=== PATIENT | female | born 1985 | race Caucasian/White ===

== ENCOUNTER → 2020-03-18 16:46 | Outpatient (CLI) | payer BC, SELFPAY ==
--- NOTE | ~2020-03-18 | XR_ITS ---
XR ankle LT min 3V, XR foot LT min 3V 03/18/2020 17:22 Indication: Left foot and ankle pain Procedure: 4 views of the left foot and ankle Comparison: No prior studies for comparison. Findings: No fracture or traumatic malalignment. There is anatomic alignment. Lisfranc joint intact. Ankle mortise within normal limits. No focal soft tissue abnormality. No foreign bodies. Impression: 1: No acute bone or joint abnormality. Reviewed, dictated and finalized at location A. [employer] Impression: 1: No acute bone or joint abnormality. Impression: 1: No acute bone or joint abnormality.
== END ==
PROVIDERS: PCP Emergency Medicine; Visit Provider Emergency Medicine
DX: M25.572 Pain in left ankle and joints of left foot (principal)
CPT/HCPCS: 73610; 73630

== ENCOUNTER → 2020-09-27 10:06 | Outpatient (CLI) | payer BC, SELFPAY ==
--- NOTE | ~2020-09-27 | MR_ITS ---
EXAMINATION: MR ankle LT wo con DATE: 09/27/2020 10:53 INDICATION: Left foot and ankle arthritis with anterolateral hindfoot pain. TECHNIQUE: Magnetic resonance imaging (MRI) of the left ankle was performed without intravenous contr ast. Sequences included sagittal, coronal, and axial proton-density weighted fast spin echo without a nd with fat saturation. COMPARISON: None. FINDINGS: Medial ankle ligaments: Deep and superficial deltoid ligaments as well as the spring ligament are normal. Lateral ankle ligaments: The anterior and posterior inferior tibiofibular ligaments are normal. The anterior talofibular, calc aneofibular and posterior talofibular ligaments are normal. Tendons: Small enthesophyte and tiny enthesopathic ossicle at the calcaneal insertion of the otherwise normal Achilles tendon. Small amount of fluid consistent with mild tenosynovitis extending along the normal peroneus longus and brevis tendons. The tibialis anterior and extensor hallucis longus and extensor d igitorum longus tendons are normal. The tibialis posterior, flexor digitorum longus and flexor halluc is longus tendons are normal. Plantar fascia: Plantar aponeurosis is normal. Bones/other: Bone alignment is normal. No fracture or pathologic marrow replacing process. Joint spaces are normal . Fluid: Physiologic amount fluid in the joint spaces. Small ganglion cyst extending superiorly from the media l side of the talonavicular joint along the undersurface of the superficial deltoid ligament. IMPRESSION: 1. Mild peroneal tenosynovitis. Reviewed, dictated and finalized at location A.
== END ==
PROVIDERS: Visit Provider Podiatrist Foot & Ankle Surgery
DX: M13.872 Other specified arthritis, left ankle and foot (principal); M65.872 Other synovitis and tenosynovitis, left ankle and foot
CPT/HCPCS: 73721

== ENCOUNTER 2023-02-08 12:51 | Outpatient (CLI) | payer BC, SELFPAY ==
--- NOTE | ~2023-02-08 | XR_ITS ---
EXAMINATION: XR chest 2V 02/08/2023 13:04 INDICATION: Acute bronchitis. Cough. Congestion. PROCEDURE: 2 view chest COMPARISON: No prior studies for comparison. FINDINGS: The lungs are clear. The cardiomediastinal silhouette is within normal limits. There are no pleural effusions. There is no pneumothorax suspected. IMPRESSION: 1: NO ACUTE CARDIOPULMONARY DISEASE. Reviewed, dictated and finalized at location L. ARCHITECT
== END 2023-02-08 12:52 ==
PROVIDERS: PCP Emergency Medicine; Visit Provider Emergency Medicine
DX: R05.9 Cough, unspecified (principal); J20.9 Acute bronchitis, unspecified
CPT/HCPCS: 71046

== ENCOUNTER 2023-12-06 16:54 | Outpatient (CLI) | payer BC, SELFPAY ==
--- NOTE | ~2023-12-06 | XR_ITS ---
EXAMINATION: XR hand LT min 3V, XR hand RT min 3V DATE: 12/06/2023 17:06 INDICATION: Unspecified synovitis and tenosynovitis at the bilateral hands. TECHNIQUE: 1. Posteroanterior, oblique and lateral views of the left hand were obtained. 2. Posteroanterior, oblique and lateral views of the right hand were obtained. COMPARISON: None. FINDINGS: Normal alignment and joint spaces at the bilateral hands and wrists. No fractures. No erosions to sug gest inflammatory arthritis. Soft tissues are unremarkable. IMPRESSION: 1. Negative bilateral hand radiographs. Reviewed, dictated and finalized at location A. IMPRESSION: 1. Negative bilateral hand radiographs.
== END 2023-12-06 16:55 | disposition home or self-care (01) ==
LOC: ANHIMG 16:55
PROVIDERS: PCP Emergency Medicine; Visit Provider Plastic Surgery
DX: M65.941 Unspecified synovitis and tenosynovitis, right hand (principal); M65.942 Unspecified synovitis and tenosynovitis, left hand
CPT/HCPCS: 73130

== ENCOUNTER 2024-02-27 08:00 | Outpatient (RCR) | payer BC, SELFPAY ==
--- NOTE | 2023-12-30 16:02 | OTOPEVAL1 ---
Assessment and note entered by Reginald Garibay, SOCRATES/Suzette, CHT Evaluation Information Assessment Status Evaluation Diagnosis Unspecified synovitis and tenosynovitis ICD-10 Condition Codes (OT) M79.641,M79.642 Subjective Information Patient reporting bilateral hand pain that's been going on for 20 years. 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 She reports the pain is localized to her palms. Prior to receiving injections a few weeks ago she was unable to fully straighten her fingers and she is able to now with some effort and pain. She reports no paresthesia and no radiating pains. Assessment OT Clinical Summary Patient referred to OT with bilateral hand pain with dx of flexor tenosynovitis. She presents with persistent pain that is exacerbated by activities that require finger flexion, such as typing, which she unfortunately does a lot of with working as an treasury accountant. Skilled OT indicated for use of modalities, manual therapy, HEP instruction/ progression, splinting, and therapeutic exercise to facilitate optimal functional hand function and reduced pain. Plan of Care Interventions Therapeutic Exercise,Manual Therapy,Therapeutic Activities,Hot Pack/Cold Pack,Ultrasound,Paraffin OT Services Indicated Yes Treatment Frequency and 2x/week for 8 visits Duration These treatments will address the objective and functional deficits as defined above. The patient will be advanced safely and appropriately in order for the patient to progress towards his/her prior level of function. Additional exercises will be introduced and as well as a comprehensive home exercise program upon discharge, if needed, ?to ensure carryover of functional gains achieved in the clinic. This treatment plan has been reviewed and agreement upon by the patient.
--- NOTE | 2023-12-30 16:03 | OPREHPOC ---
Outpatient Therapy Plan of Care This is a Multidisciplinary Plan of Care that may contain components documented by all disciplines (PT, OT, and ST.) OT Problem 1 OT Problem #1 Knowledge Deficit OT Goal 1 Goal / Goal Update 1. Patient to be independent with instructed materials.8 OT Problem 2 OT Problem #2 Pain OT Goal 1 Goal / Goal Update 1. Patient to report progressing to 0/10 pain at rest. 2. Patient to report reduced pain after a work day to 3/10 at worst . Target Visit 8 OT Problem 3 OT Problem #3 Impaired Flexibility OT Goal 1 Goal / Goal Update 1. Patient to be able to make a hook fist with bilateral hands with <1 cm gap between finger tips and DPC. Target Visit 8 OT Problem 4 OT Problem #4 Impaired Strength OT Goal 1 Goal / Goal Update 1. Patient to be able to progress to bilateral hand bag bailer/pinch strengthening with at least yellow putty x5 minutes without pain. Target Visit 8
--- NOTE | 2024-01-30 08:22 | PCOTNOTE ---
Patient did not show up for scheduled appointment this date. Called and left a message for re-schedule if able to attend. No Show.
--- NOTE | 2024-03-12 08:58 | PCOTNOTE ---
Late note for 03/09/24: Patient called and cancelled appointment this date due to falling and having lacerations on her hands. Not wanting to come in for therapy due to this.
--- NOTE | 2024-03-12 08:58 | PCOTNOTE ---
Patient did not show up for scheduled appointment this date. Called patient who reports she thought she canceled today's appointment too when she canceled last week's appt. Patient reports she has injured her hand, reporting lacerations on her hands, and she didn't want to come in for therapy with this. She also did not want to reschedule the re-eval at this time due to not knowing how long it will take for her hands to heal. Asked patient to call the secretaries to reschedule the re-eval when she's ready.
== END 2024-03-29 23:59 | disposition home or self-care (01) ==
LOC: ANHOT 08:00
PROVIDERS: PCP Emergency Medicine; Visit Provider Plastic Surgery
DX: M65.949 Unspecified synovitis and tenosynovitis, unspecified hand (principal)
CPT/HCPCS: 97018; 97035; 97110; 97140; 97165; 97530

== ENCOUNTER 2024-11-01 21:14 | Emergency (ER) | payer BC, SELFPAY ==
[2024-11-01 21:17] VITALS: BP 153/101; PULSE 85; RESP 18; TEMP 36.6; O2SAT 98
--- OUTSIDE RECORDS SUMMARY | 2024-11-02 00:40 | XMS_ITS | Clinical Summary ---
Author Organization [facility] Address [address] [place] [address] Care Team Providers Care Beaming Machine Operator Name Role Phone Mehrdad Harley MD Primary Care Provider [phone] Source Comments [facility],non-owned Affiliates and Associated Physician Practices is amultiple site organization consisting of ambulatory clinics and hospital sitesin [place], [place], [place] and [place]. This disclosure is being madepursuant to the Care Everywhere program and may not contain all information available regarding this patient. Last updated 17.[employer] Allergies No known active allergies Medications * Be aware that medications may not be up to date on this document. Alwaysverify current medications with the patient. baclofen (LIORESAL) 10 MG tabletIndicatio ns:back pain Take 1 Tab by mouth 2 times daily May cause drowsiness. Reasons: back pain 60 Tab 10/10/2016 Active ALPRAZolam (Xanax) 0.5 MG tablet Take 1 (one) tablet by mouth once daily as needed Active cloNIDine (Catapres) 0.1 MG tablet Take 1 (one) tablet by mouth every 12 hours 05/09/2024 Active fluticasone propionate (Flonase) 50 MCG/ACT nasal spray Roscoe 2 (two) sprays into each nostril once daily Make sure to shake bottle first Active gabapentin (Neurontin) 400 MG capsule Take 1 (one) capsule by mouth 3 times daily Active HYDROcodone-olivia taminophen (Raymond) 5-325 MG tablet Take 1 (one) tablet by mouth as needed 05/09/2024 Active lamoTRIgine (LaMICtal) 100 MG tablet Take 1 (one) tablet by mouth once daily Active levocetirizine (Xyzal) 5 MG tablet Take 1 (one) tablet by mouth every 24 hours 10/13/2023 Active methylphenidate ER (Concerta) 36 MG tablet Take 1 (one) tablet by mouth once daily Active Lyrica 200 MG capsule Take 1 (one) capsule by mouth every 12 hours 05/09/2024 Active SUMAtriptan (Imitrex) 50 MG tablet Take 1 (one) tablet by mouth once Active triamcinolone acetonide (Kenalog) 0.1 % cream Apply to affected area 2 times daily Active Venlafaxine HCl (venlafaxine ER 24hr) 150 MG tablet Take 1 (one) tablet by mouth once daily 02/01/2024 Active naproxen (Naprosyn) 250 MG tablet Take 1 (one) tablet by mouth 2 times daily as needed 07/31/2024 Active Active Problems Problem Noted Date Diagnosed Date Abdominal pain 07/23/2024 Allergic rhinitis 07/23/2024 Depressive disorder 07/23/2024 Eczema 07/23/2024 Elevated blood-pressure read ing without diagnosis of hypertension 07/23/2024 Fatigue 07/23/2024 Herniated lumbar intervertebral disc 07/23/2024 Overview (07/23/2024): Discectomy Increased frequency of urination 07/23/2024 Obesity 07/23/2024 Acquired pes planus of left foot 10/11/2022 Bursitis of foot 12/25/2020 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 Congenital pes cavus 04/07/2020 Anemia 10/05/2018 Fibromyalgia 10/05/2018 Lumbago with sciatica 10/05/2018 Encounters Date Type Department Care Team Description 10/09/2024 8:40 AM CDT Office Visit [facility] - Rheumatology [address] [place] [address] Hermelinda Loredo MD Polyarthralgia (Primary Dx) 10/09/2024 Travel 09/20/2024 Telephone [facility] - ENT [address] [place] [phone] Flako Person MD Immunotherapy (Allergy test) from Last 3 Months Immunizations Immunization Administration Dates Next Due FLU VACCINE QUAD IIV4 PF ID 11/25/2015 FLU VACCINE QUAD IIV4 SPLIT 0.25 ML IM 7,12/10/2014 Social History Tobacco Use Types Packs/Day Years Used Date Smoking Tobacco: Never Smokeless Tobacco: Never Alcohol Use Standard Drinks/Week Comments Not Currently 0 (1 standard drink = 0.6 oz pur e alcohol) Comments Unknown Sex and Gender Information Value Date Recorded Sex Assigned at Not on file Legal Sex Female 2:48 PM CDT Gender Identity Not on file Sexual Orientation Not on file Last Filed Vital Signs Vital Sign Reading Time Taken Comments Blood Pressure 127/91 10/09/2024 8:30 AM CDT Pulse 123 10/09/2024 8:30 AM CDT Temperature 36.6 C (97.8 F) 10/10/2016 10:04 AM CDT Respiratory Rate 18 10/10/2016 10:04 AM CDT Oxygen Saturation 97% 10/09/2024 8:30 AM CDT Inhaled Oxygen Concentration - - Weight 124.3 kg (274 lb) 10/09/2024 8:30 AM CDT Height 170.2 cm (5' 7) 10/09/2024 8:30 AM CDT Body Mass Index 42.91 10/09/2024 8:30 AM CDT Plan of Treatment Upcoming Encounters Date Type Department Care Team (Late st Contact Info) Description 11/07/2024 1:40 PM CDT Office Visit [facility] - Rheumatology [address] [place] [phone] Hermelinda Loredo MD [address] [place] [address] [place] [address] Health Maintenance Due Date Last Done Comments HIV SCREENING 2001 HEPATITIS C SCREENING 06/12/2004 DTAP/TDAP/TD VACCINES (1 - Tdap) 2005 HEPATITIS B VACCINE (1 of 3 - 19+ 3-dose series) 2005 PAP SMEAR 06/18/2007 HPV VACCINE (1 - 3-dose SCDM series) 2013 DEPRESSION SCREENING 02/15/2024 COVID-19 VACCINE (3 - 2024-2 6 season) 2024 04/27/2020, 03/29/2020 INFLUENZA VACCINE (#1) 2024 7, 11/25/2015, 12/10/2014 ZOSTER VACCINE (1 of 2) 2036 HIB VACCINE Aged Out No longer eligi ble based on patient's age to complete this topic MENINGOCOCCAL (Group B) VACCINE SHARED DECISION-MAKING Aged Out No longer eligible based on patient's age to complete this topic MENINGOCOCCAL GROUPS A/C/Y/W VACCINE Aged Out No longer eligible b ased on patient's age to complete this topic PNEUMOCOCCAL VACCINE Aged Out No long er eligible based on patient's age to complete this topic Insurance ANTH Care Teams Beaming Machine Operator Relationship Specialty Start Date End Date Mehrdad Harley MD [address] [place] [address] PCP - General Family Medicine 01/10/24
--- NOTE | 2024-11-02 00:48 | ED.BACK ---
HPI - Back Pain/Injury General Chief Complaint: Back Pain/Injury Stated Complaint: Upper Back/Neck pain-rad down RT arm Time Seen by Provider: 11/02/24 00:24 History of Present Illness HPI Narrative: Patient history of fibromyalgia was using the massage done when she was feeling pain that feels sharp, going down to her right arm, mostly her 4th and 5th digits. No weakness, worse with certain movements Related Data Allergies Allergy/AdvReac Type Severity Reaction Status Date / Time No Known Allergies Allergy Verified 11/01/24 21:15 Review of Systems Review of Systems: All systems reviewed & are unremarkable except as noted in HPI and below [facility] Social History Social History (Updated 12/06/23 @ 16:19 by Odilia Heath MA) Smoking status: Never smoker Exam Narrative: EXAMINATION OF ORGAN SYSTEMS/BODY AREAS: Constitutional: Vital signs per nursing GENERAL:[No acute distress, non-toxic appearing.] HEAD: Normal with no signs of head trauma. NECK: No midline tenderness EYES: EOMI, conjunctiva normal ENT: Hearing grossly intact LUNGS: Nonlabored breathing. HEART: [Regular rate and rhythm] ABD: [Soft], [nontender to palpation] EXT: Normal range of motion SKIN: [No rashes or lesions.] NEURO: [Alert and oriented x 3. Normal final inspector balance wheel strength and normal range of motion and strength right upper extremity.] PSYCH: Normal affect Course Vital Signs Vital signs: Vital Signs Temperature 97.8 F 11/01/24 21:17 Pulse Rate 85 11/01/24 21:17 Respiratory Rate 18 11/01/24 21:17 Blood Pressure 153/101 H 11/01/24 21:17 Pulse Oximetry 98 11/01/24 21:17 Oxygen Delivery Room Air 11/01/24 21:17 Temperature 97.8 F 11/01/24 21:17 Pulse Rate 85 11/01/24 21:17 Respiratory Rate 18 11/01/24 21:17 Blood Pressure 153/101 H 11/01/24 21:17 Pulse Oximetry 98 11/01/24 21:17 Oxygen Delivery Room Air 11/01/24 21:17 MDM - Back Pain/Injury MDM Narrative Medical decision making narrative: Patient presenting here with signs and symptoms consistent with possible cervical radiculopathy versus ulnar neuropathy, discussed with patient that we can obtain a CT here for further evaluation, and started on stable with follow-up to neuro surgery, patient would rather defer imaging at this time which I feels quite reasonable, she has no weakness or strength deficits, I will started on steroids and follow-up to neurosurgery provided with strict return precautions patient agreeable to this plan Discharge Plan Discharge Clinical Impression: Neuropathy Patient Disposition: Home Condition: Stable Instructions: Cervical Radiculopathy (ED) Additional Instructions: Try the medications as prescribed, do not put any weight or pressure on your right side, if you change your mind about getting imaging you can always return to the emergency room, please follow-up with the neurosurgeon and come back to the ER if you have worsening symptoms especially if you have new weakness. Patient Language: Gabonese Prescriptions: New prednisone 20 mg tablet 40 mg PO DAILY 4 Days Qty: 8 0RF Follow-up/Referrals: Michaelle Vazquez MD [Physician, Neurosurgery] - 2 Days Mehrdad Harley MD [Primary Care Provider, Family Practice]
== END 2024-11-02 00:55 | disposition home or self-care (01) ==
LOC: ANHED 11-02 00:38
PROVIDERS: Emergency Provider Emergency Medicine; PCP Emergency Medicine
DX: G62.9 Polyneuropathy, unspecified (principal); M79.7 Fibromyalgia
CPT/HCPCS: 99283; J7512

== ENCOUNTER 2024-12-10 17:30 | Outpatient (CLI) | payer BC, SELFPAY ==
--- NOTE | ~2024-12-10 | XR_ITS ---
XR cervical spine 4-5V Indication: M79.601 - Pain in right arm, UPPER BACK X 1 MO, NKI Comparison: None Findings: No fracture or subluxation. No subluxation with flexion-extension. Moderate loss of disc height throughout. Soft tissues unremarkable Impression: No acute abnormality. Reviewed, dictated and finalized at location P. Impression: No acute abnormality.
== END 2024-12-10 17:31 | disposition home or self-care (01) ==
PROVIDERS: PCP Emergency Medicine; Visit Provider Nurse Practitioner Adult Health
DX: M79.601 Pain in right arm (principal)
CPT/HCPCS: 72050